=== PATIENT | female | born 1935 | race Caucasian/White ===

== ENCOUNTER 2018-09-03 14:55 | Emergency (ER) | payer MEDICARE, OTHER ==
[~2018-09-03] VITALS: Wt 80.0 kg
[2018-09-03] MEDS ORDERED: IPRATROPIUM (NEB) 0.5 MG/2.5 ML AMP INH STA (15:13)
[2018-09-03] MEDS ORDERED: ALBUTEROL 0.5% (NEB) 2.5 MG/0.5 ML AMP INH STA (15:13)
--- NOTE | 2018-09-03 18:28 | ERD ---
ER Documentation Chief Complaint Chief Complaint feeling sick due to roommate has sepsis. pt has no distress. no fevers. HPI This is an 82-year-old female that presented to the emergency department stating that for the past several days she has had a nonproductive cough. The patient is on home oxygen 2 L continuous throughout the day. She resides at a boarding care facility. She is concerned because she stated 1 of the other roommates was diagnosed with sepsis. The patient states she said no fevers or shaking no chills. She has no shortness of breath at rest or exertion. The patient presents to the emergency department with her service dog. She indicates that she is on home oxygen for suspected COPD. She had a heavy tobacco history but quit in March 2018, 7 months prior to arrival after she required intubation f or respiratory distress. 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 She denies productive or nonproductive cough. ROS All systems reviewed and are negative except as per history of present illness. Medications Home Meds Active Scripts Albuterol Sulfate* (Proair HFA*) 8.5 Gm Hfa.aer.ad, 2 PUFF INH Q6H PRN for WHEE ZING AND SOB, #1 INHALER Prov:CHERYL HICKEY MD 09/03/18 PMhx/Soc Medical and Surgical Hx: pt denies Surgical Hx Hx Neurological Disorder: No Hx Respiratory Disorders: No Hx Cardiac Disorders: Yes (HTN) Hx Psychiatric Problems: No Hx Miscellaneous Medical Probl: No Hx Alcohol Use: No Hx Substance Use: No Hx Tobacco Use: No Smoking Status: Never smoker Physical Exam Vitals Vital Signs Date Temp Pulse Resp B/P (MAP) Pulse Ox O2 O2 Flow FiO2 Time Delivery Rate 09/03/18 62 19 108/40 99 Room Air 16:19 (62) 09/03/18 82 20 3 Nasal 15:37 Cannula 09/03/18 98.2 73 22 147/85 94 15:00 (105) Physical Exam Constitutional:Well-developed. Well-nourished. No severe respiratory distress HEENT:Normocephalic. Atraumatic.Pupils were equal round reactive to light. Dry mucous membranes.No tonsillar exudates. Neck: No nuchal rigidity. No lymphadenopathy. No posterior cervical spine tenderness or step-offs. Respiratory: Not using accessory muscles of respiration.Lungs were clear to auscultation bilaterally. No rhonchi. No rales. Mild wheezing bilaterally Cardiovascular: Regular rate regular rhythm.No murmurs. No rubs were appreciated.S1, S2 normal. Distal pulses are palpable 2+ bilaterally. GI: Abdomen was soft. Nontender. Non Distended. No pulsatile abdominal masses or bruits. No rebound. No guarding. Bowel sounds were present and normal. Muscle skeletal: Full range of motion of both the upper and lower extremities bilaterally.Normal muscle tone.No assymetrical calf tenderness or swelling. Skin: No petechia, no purpura. No lesions on the palms or the soles of the feet. No maculopapular rash. NEURO: Patient was alert, awake, orientated x3.No facial droop. Gait observed and patient ambulates with slow steady gait.Speech had regular rate and rhythm. No focal neurological deficits. Result Diagram: 09/03/18 1538 09/03/18 1538 Results 24 hrs Laboratory Tests Test 09/03/18 15:38 White Blood Count 8.1 10^3/ul Red Blood Count 3.86 10^6/ul Hemoglobin 11.3 g/dl Hematocrit 36.0 % Mean Corpuscular Volume 93.3 fl Mean Corpuscular Hemoglobin 29.3 pg Mean Corpuscular Hemoglobin Concent 31.4 g/dl Red Cell Distribution Width 12.5 % Platelet Count 230 10^3/UL Mean Platelet Volume 10.5 fl Immature Granulocytes % 0.400 % Neutrophils % 59.4 % Lymphocytes % 26.3 % Monocytes % 10.9 % Eosinophils % 1.9 % Basophils % 1.1 % Nucleated Red Blood Cells % 0.0 /100WBC Immature Granulocytes # 0.030 10^3/ul Neutrophils # 4.8 10^3/ul Lymphocytes # 2.1 10^3/ul Monocytes # 0.9 10^3/ul Eosinophils # 0.2 10^3/ul Basophils # 0.1 10^3/ul Nucleated Red Blood Cells # 0.0 10^3/ul Prothrombin Time 13.2 Sec Prothrombin Time Ratio 1.0 INR International Normalized Ratio 0.99 Activated Partial Thromboplast Time 27.5 Sec Sodium Level 144 mmol/L Potassium Level 5.3 mmol/L Chloride Level 99 mmol/L Carbon Dioxide Level 39 mmol/L Anion Gap 6 Blood Urea Nitrogen 47 mg/dl Creatinine 1.21 mg/dl Est Glomerular Filtrat Rate mL/min mL/min Glucose Level 102 mg/dl Calcium Level 9.6 mg/dl Total Bilirubin 0.3 mg/dl Direct Bilirubin 0.00 mg/dl Indirect Bilirubin 0.3 mg/dl Aspartate Amino Transf (AST/SGOT) 22 IU/L Alanine Aminotransferase (ALT/SGPT) 23 IU/L Alkaline Phosphatase 92 IU/L Creatine Kinase 49 IU/L Creatine Kinase Index 2.2 Creatinine Kinase MB (Mass) 1.10 ng/ml Troponin I < 0.012 ng/ml B-Type Natriuretic Peptide 375 PG/ML Total Protein 7.8 g/dl Albumin 4.2 g/dl Globulin 3.60 g/dl Albumin/Globulin Ratio 1.16 Current Medications Medications Dose Sig/Eusebio Start Time Status Last (Trade) Ordered Route PRN Stop Time Admin Dose Reason Admin Albuterol 10 mg ONCE STAT 09/03/18 DC 09/03/18 (Proventil INH 15:13 15:36 0.5% (Neb)) 09/03/18 15:15 Ipratropium 1 mg ONCE STAT 09/03/18 DC 09/03/18 [place] INH 15:13 15:37 (Atrovent 09/03/18 15:15 0.02% (Neb)) Procedures/MDM The patient presented to the emergency department with dyspnea. My differential diagnosis included but was not limited to upper airway obstruction, CHF, pulmonary embolism, cardiac ischemia, pneumonia, pneumothorax, anemia, drug overdose, pulmonary edema, COPD or asthma. The patient had a chest radiograph that was ordered and reviewed by myself as well as the radiologist and there was a right perihilar and right lung base consolidation. I did feel is necessary to obtain a CT scan without contrast in order to further evaluate if this was an infectious process. There is no consolidative pulmonary infiltrates noted on the CT scan but the patient had mild sentry lobar emphysema which was consistent with her presentation. The patient received nebulizer treatments. Her wheezing is completely resolved. She stated she felt comfortable being discharged home. She will follow-up with her railway switch operator. Ambulance transfer was arranged for the patient given that she has difficulty ambulating. The patient's BUN was 47 creatinine was 1.21. Potassium was on the high end of normal at 5.3. The patient will follow-up on an outpatient basis for further evaluation into her elevated renal function test however my clinical suspicion is likely that this was prerenal azotemia as her BUN to creatinine ratio was 38. She did receive a liter bolus of normal saline for clinical dehydration. 12 Lead EKG tracing ordered and reviewed by myself showed: Sinus bradycardia 58 bpm and no arrhythmia. [place] interval normal. QRS duration normal. No ST segment elevation No ST segment depression. No changes consistent with acute ischemia. The patient was discharged home in fair condition. They were instructed to return to the emergency department at any time if there was any worsening of their condition. The patient stated they would follow up with their PCP in the next 24-48 hours to initiate a suitable medication regimen under the care of their PCP as well as to allow their PCP to monitor any drug reactions. The patient was discharged home with prescriptions after they gave informed consent to the new medication. They were also fully informed by myself on the adverse effects and adverse drug interactions in order to provide adequate safeguards to prevent possible adverse reactions to medications. Departure Diagnosis: Primary Impression: COPD exacerbation Additional Impression: Acute prerenal azotemia Condition: CHERYL Ayon MD Sep 03, 2018 18:28
[2018-09-03] MEDS ORDERED: SOD CHLORIDE 0.9% 1,000 ML IV STA (18:30)
[2018-09-03] MEDS ORDERED: ALBU8.5H8 INH (18:30)
[2018-09-03 21:29] VITALS: BP 106/46; PULSE 67; RESP 20
== END 2018-09-03 21:33 | disposition home or self-care (01) ==
LOC: E/R 14:55
DX: J44.1 Chronic obstructive pulmonary disease with (acute) exacerbation (principal); R39.2 Extrarenal uremia; I10 Essential (primary) hypertension; R06.02 Shortness of breath
CPT/HCPCS: 71045; 71250; 80053; 82550; 82553; 83880; 84484; 85025; 85610; 85730; 93005; 94644; 99285; J7030

== ENCOUNTER 2018-11-14 14:44 | Emergency (ER) | payer MEDICARE, OTHER ==
[~2018-11-14] VITALS: Ht 162.6 cm; Wt 95.5 kg
[~2018-11-14 14:44] MED LIST: ALBU2.5V3 NEB; ALBU8.5H8 INH; ATEN50TA PO; ATOR10TA65 PO; FURO40TA4 PO; LEVO125T7 PO; LISI10TA2 PO
[2018-11-14 14:57] VITALS: Ht 162.6 cm; Wt 95.5 kg
[2018-11-14 17:16] VITALS: BP 130/49; PULSE 70; RESP 22
== END 2018-11-14 18:17 | disposition home or self-care (01) ==
LOC: E/R 14:44
DX: I50.9 Heart failure, unspecified (principal); J44.9 Chronic obstructive pulmonary disease, unspecified; D64.9 Anemia, unspecified; N28.9 Disorder of kidney and ureter, unspecified; R60.0 Localized edema; I11.0 Hypertensive heart disease with heart failure
CPT/HCPCS: 36415; 71045; 80048; 82962; 83880; 84484; 85025; 85610; 93005